=== PATIENT | male | born 1970 | race Caucasian/White ===

== ENCOUNTER → 2019-06-07 14:47 | Outpatient (CLI) | payer OTHER, SELFPAY ==
--- NOTE | 2019-06-07 | DI.ECHO.S_ITS ---
[facility] +---------+ : : [address] : [place] : : : : [id number] : : : : Phone: [phone]+ Echocardiogram Report + + :Name: KJ SONI Study Date: 06/07/2019 Height: 70 in : :[facility] Weight: 185 lb : : Gender: Male BSA: 2.0 m2 : :: 1970 Age: 48 yrs BP: 148/94 mmHg: :Reason For Study: Abnormal ECG : : Performed By: Deisy Espinosa : :Referring: YISSEL CANNON : + + Interpretation Summary Sinus bradycardia. Heart rate is 43-47 beats per minute. Normal LV size; moderate concentric LVH; normal wall motion and LV systolic function. EF is 60-65%. Moderate biatrial enlargement. No significant valvular abnormalities. There is a very small PFO with associated left to right shunt. No prior study available for comparison. Procedure: A two-dimensional transthoracic echocardiogram with color flow and Doppler was performed. The study quality was technically good. Comparison is made with the echocardiogram of 02-01-05. The patient was in normal sinus rhythm during the exam. Left Ventricle: The left ventricle is grossly normal size. Left ventricular wall thickness is moderately increased. The ejection fraction is estimated to be 60-65%. Right Ventricle: Borderline right ventricular enlargement. The right ventricular systolic function is normal. Atria: The left atrium is moderately dilated. The right atrium is moderately dilated. A patent foramen ovale is present. Mitral Valve: The mitral valve is normal in structure and function. There is no mitral regurgitation. Aortic Valve: The aortic valve is trileaflet. The aortic valve opens well. No aortic regurgitation is present. Tricuspid Valve: The tricuspid valve leaflets are thin and pliable. There is mild tricuspid regurgitation. The right ventricular systolic pressure is estimated to be at least 31 mmHg based on an estimated right atrial pressure of 3 mm Hg. Pulmonic Valve: The pulmonic valve is not well seen, but is grossly normal. There is trace pulmonic regurgitation. Great Vessels: The aortic root is mildly dilated. The ascending aorta is mildly enlarged. The aortic arch is normal in size. The IVC is of normal diameter and collapses less than 50% with a sniff. This suggests a right atrial pressure of 8 mm Hg. Pericardium/ Pleura There is no pericardial effusion. There is no pleural effusion. MMode/2D Measurements & Calculations LVIDd: 4.7 cm Ao root diam: 3.9 cm LVIDs: 2.6 cm Aortic Jxn: 3.1 cm FS: 45.7 % asc Aorta Diam: 3.8 cm EPSS: 0.43 cm Ao Arch Diam (Prox Trans): 3.0 cm IVSd: 1.3 cm LVPWd: 1.6 cm LV madrid. diameter/BSA (cm/m^2): 2.3 LV sys. diameter/BSA (cm/m^2): 1.3 LA dimension: 3.9 cm RA long axis: 5.5 cm LA A2 area: 27.5 cm2 RA area: 23.9 cm2 LA A4 area: 23.3 cm2 RA vol: 87.8 ml LA length (vol): 6.2 cm RA : 43.5 ml/m2 LA vol: 87.4 ml IVC diam: 2.1 cm LA vol index: 43.3 ml/m2 RVDd major: 7.8 cm RVD1 (basal): 3.9 cm RVD2 (mid): 2.6 cm Doppler Measurements & Calculations Ao V2 max: 184.6 cm/sec MV E max quinn: 85.5 cm/sec Ao V2 mean: 105.6 cm/sec MV A max quinn: 84.5 cm/sec Ao max P.6 mmHg MV E/A: 1.0 Ao mean P.7 mmHg Med Peak E' Quinn: 6.1 cm/sec Ao V2 VTI: 34.6 cm E/E' med: 14.0 Lat Peak E' Quinn: 8.6 cm/sec E/E' lat: 9.9 E/e' average: 11.9 MV dec time: 0.19 sec MV P1/2t: 58.2 msec TR max quinn: 240.9 cm/sec MV P1/2t max quinn: 85.9 cm/sec TR max P.2 mmHg MVA(P1/2t): 3.8 cm2 PA V2 max: 99.7 cm/sec PA V2 mean: 67.0 cm/sec PA mean P.1 mmHg PA Accel Time: 0.16 sec Electronically signed by: Ines Irvin M.D. on Reading Physician:06/08/2019 05:21 AM
== END ==
PROVIDERS: PCP Internal Medicine; Visit Provider Internal Medicine
DX: R94.31 Abnormal electrocardiogram [ECG] [EKG] (principal); Q21.1 Atrial septal defect; I77.89 Other specified disorders of arteries and arterioles
CPT/HCPCS: 93306

== ENCOUNTER → 2020-08-31 20:31 | Outpatient (ROUT) | payer OTHER, SELFPAY ==
[2020-08-31 21:06] LABS: BUN Creatinine Ratio 18.3 (6-22); Blood Urea Nitrogen 22 mg/dL (9-20); Calcium 9.8 mg/dL (8.4-10.2); Carbon Dioxide 35 mmol/L (22-32); Chloride 98 mmol/L (98-107); Cholesterol 225 mg/dL (140-199); Estimated Glomerular Filt Rate > 60.0 mL/min (>60); Glucose 94 mg/dL (70-100); HDL Cholesterol 71 mg/dL (40-60); HEMOLYSIS < 15 (0-50); LDL Cholesterol Calculated 143 mg/dL (<100); Potassium 4.2 mmol/L (3.4-5.1); Sodium 136 mmol/L (137-145); Triglycerides 55 mg/dL (35-150)
== END ==
PROVIDERS: PCP Internal Medicine; Visit Provider Internal Medicine
DX: Z00.00 Encounter for general adult medical examination without abnormal findings (principal); I10 Essential (primary) hypertension
CPT/HCPCS: 80048; 80061

== ENCOUNTER → 2023-12-11 09:42 | Outpatient (CLI) | payer OTHER, MEDICAID, SELFPAY ==
[2023-12-11 11:25] LABS: Hematocrit 38.6 % (41-53); Mean Corpuscular HGB Conc 33.8 % (30-36); Mean Corpuscular Hemoglobin 28.5 PG (26-34); Mean Corpuscular Volume 84.3 fL (80-100); Platelet Count 194 X10^3/uL (150-400); Red Blood Cell Count 4.58 X10^6/uL (4.5-5.9); White Blood Cell Count 7.1 X10^3/uL (4.5-11.0)
[2023-12-11 11:26] LABS: Alanine Aminotransferase 20 IU/L (<50); Albumin 4.3 g/dL (3.5-5.0); Albumin Globulin Ratio 1.5 (1.0-2.8); Alkaline Phosphatase 49 U/L (38-126); Aspartate Aminotransferase 22 IU/L (17-59); BUN Creatinine Ratio 12.9 (6-22); Bilirubin Total 0.7 mg/dL (0.2-1.3); Blood Urea Nitrogen 12 mg/dL (9-20); Calcium 9.2 mg/dL (8.4-10.2); Carbon Dioxide 31 mmol/L (22-32); Chloride 101 mmol/L (98-107); Estimated Glomerular Filt Rate > 60 mL/min (>60); Globulin 2.9 g/dL (1.7-4.1); Glucose 102 mg/dL (70-100); HDL Cholesterol 39 mg/dL (40-60); HEMOLYSIS < 15 (0-50); Potassium 4.4 mmol/L (3.4-5.1); Sodium 135 mmol/L (137-145); Total Protein 7.2 g/dL (6.3-8.2); Triglycerides 69 mg/dL (35-150)
[2023-12-11 11:35] LABS: Cholesterol 377 mg/dL (140-199); LDL Cholesterol Calculated 324 mg/dL (<100)
[2023-12-11 11:55] LABS: Prostate Specific Antigen Scrn 0.483 ng/mL (0.1-4.0)
[2023-12-11 11:58] LABS: TSH w/ Reflex to FT4 0.86 uIU/mL (0.47-4.68)
== END ==
LOC: LAB 09:43
PROVIDERS: PCP Internal Medicine; Referring Provider Internal Medicine; Visit Provider Internal Medicine
DX: Z12.5 Encounter for screening for malignant neoplasm of prostate (principal); E78.2 Mixed hyperlipidemia; R55 Syncope and collapse
CPT/HCPCS: 36415; 80053; 80061; 84443; 85027; G0103

== ENCOUNTER → 2023-12-18 13:52 | Outpatient (CLI) | payer OTHER, MEDICAID, SELFPAY | LOC: CAR 13:53 | PROVIDERS: PCP Internal Medicine; Referring Provider Internal Medicine; Visit Provider Internal Medicine | DX: R00.2 Palpitations (principal); R55 Syncope and collapse | CPT/HCPCS: 93246 ==

== ENCOUNTER → 2024-01-10 07:59 | Outpatient (CLI) | payer OTHER, MEDICAID, SELFPAY ==
--- NOTE | 2024-01-10 08:00 | DI.ECHO.S_ITS ---
[facility]---------+ [facility] : : [address] : : [place] : : [id number] : : Phone: [phone] Echocardiogram Report + + :Name: KJ SONI Study Date: 01/10/2024 Height: 71 in : :[facility] ReadingLocation: Weight: 170 lb : : Gender: Male BSA: 2.0 m2 : :: 1970 Age: 53 yrs BP: 149/90 mmHg: :Reason For Study: HYPERTENSION : :Ordering Physician: KASSANDRA, : :YISSEL Performed By: Siobhan Wells : :Referring: YISSEL CANNON : + + Interpretation Summary There is mild concentric left ventricular hypertrophy. The ejection fraction is estimated to be 65-70%. Diastolic function could not be accurately assessed due to contradictory data. There is mild biatrial enlargement. Doppler evidence suggests a left to right interatrial shunt. The right ventricle is normal in size and function. Pulmonary artery pressures cannot be estimated because of the lack of a measurable TR jet velocity but the IVC suggests a CVP of around 8 mmHg. Compared to the prior study dated 06/07/2019, no major change. Procedure: A two-dimensional transthoracic echocardiogram with color flow and Doppler was performed. The study quality was technically adequate. Comparison is made with the echocardiogram of 06/07/2019. The patient was in sinus bradycardia with heart rates between 48-54 bpm during the exam. Left Ventricle: The left ventricle is normal in size. There is mild concentric left ventricular hypertrophy. The ejection fraction is estimated to be 65-70%. Diastolic function could not be accurately assessed due to contradictory data. Right Ventricle: The right ventricle is normal in size and function. Atria: There is mild biatrial enlargement. A patent foramen ovale is present. Doppler evidence suggests a left to right interatrial shunt. Mitral Valve: The mitral valve is normal in structure and function. There is no mitral regurgitation noted. Aortic Valve: The aortic valve is trileaflet. The aortic valve opens well. There is no aortic valve stenosis. No aortic regurgitation is present. Tricuspid Valve: The tricuspid valve leaflets are thin and pliable. There is mild tricuspid regurgitation. Pulmonary artery pressures cannot be estimated because of the lack of a measurable TR jet velocity but the IVC suggests a CVP of around 8 mmHg. Pulmonic Valve: The pulmonic valve leaflets are thin and pliable; valve motion is normal. There is trace pulmonic regurgitation. Great Vessels: The aortic root is normal size. The ascending aorta is mildly enlarged. The IVC is dilated (diameter is greater than 2.1 cm) yet it collapses greater than 50% with a sniff. This suggests a right atrial pressure of 8 mm Hg. Pericardium/ Pleura There is no pericardial effusion. There is no pleural effusion. MMode/2D Measurements & Calculations LVIDd: 5.0 cm LVOT diam: 2.0 cm LVIDs: 2.8 cm Ao root diam: 3.6 cm FS: 43.9 % asc Aorta Diam: 3.9 cm IVSd: 1.3 cm Ao Arch Diam (Prox Trans): 3.1 cm LVPWd: 1.1 cm LV madrid. diameter/BSA (cm/m^2): 2.5 LV sys. diameter/BSA (cm/m^2): 1.4 LA A2 area: 25.3 cm2 RA long axis: 6.3 cm LA A4 area: 21.0 cm2 RA area: 22.0 cm2 LA length (vol): 5.8 cm RA vol: 65.5 ml LA vol: 78.2 ml RA : 33.3 ml/m2 LA vol index: 39.7 ml/m2 IVC diam: 2.3 cm RVD1 (basal): 4.1 cm RVD2 (mid): 3.0 cm TAPSE: 2.4 cm Doppler Measurements & Calculations Ao V2 max: 188.3 cm/sec LVOT Max Quinn: 164.6 cm/sec Ao V2 mean: 129.2 cm/sec LV V1 max P.8 mmHg Ao max P.2 mmHg LV V1 VTI: 33.8 cm Ao mean P.5 mmHg ISABEL(I,D): 2.7 cm2 Ao V2 VTI: 38.8 cm ISABEL(V,D): 2.7 cm2 sev ratio: 0.87 ISABEL indexed to BSA (cm^2/m^2): 1.4 MV E max quinn: 69.9 cm/sec TR max quinn: 193.9 cm/sec MV A max quinn: 53.1 cm/sec TR max P.0 mmHg MV E/A: 1.3 PA V2 max: 111.4 cm/sec Med Peak E' Quinn: 8.2 cm/sec PA V2 mean: 81.8 cm/sec E/E' med: 8.6 PA mean P.0 mmHg Lat Peak E' Quinn: 9.0 cm/sec PA pr(Accel): 29.3 mmHg E/E' lat: 7.7 E/e' average: 8.1 MV dec time: 0.19 sec SVLVOT): 105.8 ml Reading Physician:01:48 PM
== END ==
LOC: ECHO 08:00
PROVIDERS: PCP Internal Medicine; Referring Provider Internal Medicine; Visit Provider Internal Medicine
DX: I07.1 Rheumatic tricuspid insufficiency (principal); I77.89 Other specified disorders of arteries and arterioles; I10 Essential (primary) hypertension
CPT/HCPCS: 93306